=== PATIENT | male | born 1935 | race Caucasian/White ===

== ENCOUNTER 2016-11-15 10:21 | Outpatient (CLI) ==
[2016-11-15 11:01] LABS: HEMATOCRIT 39.5 % (42.0-52.0); HEMOGLOBIN 13.2 g/dl (14.0-18.0); MEAN CORPUSCULAR HEMOGLOBIN 29.1 pg (27.0-31.0); MEAN CORPUSCULAR HGB CONC 33.4 (31.8-35.4); MEAN CORPUSCULAR VOLUME 87.2 fl (80.0-94.0); RED BLOOD COUNT 4.53 10^6/ul (4.70-6.10); WHITE BLOOD COUNT 8.1 K/ul (4.2-10.2)
[2016-11-15 11:05] LABS: BILIRUBIN,URINE Negative (NEGATIVE); KETONES,URINE Negative (NEGATIVE); LEUKOCYTE ESTERASE ,URINE Trace (NEGATIVE); NITRITE,URINE Negative (NEGATIVE); PH,URINE 5.5 (5-9); PROTEIN,URINE Trace (NEGATIVE); URINE, BLOOD Negative (NEGATIVE)
[2016-11-15 11:07] LABS: ADD URINE MICROSCOPIC YES
[2016-11-15 11:08] LABS: BACTERIA,URINE TRACE (NOT PRESENT)
[2016-11-15 11:23] LABS: ALBUMIN 3.8 g/dL (3.4-5.0); ANION GAP 14.6; BUN/CREATININE RATIO 13.71; CALCIUM 9.5 mg/dL (8.2-10.2); CREATININE 1.75 mg/dL (0.60-1.10); POTASSIUM 4.6 mmol/L (3.5-5.1); URIC ACID 7.2 mg/dL (2.6-7.2)
[2016-11-16 06:12] LABS: URINE CREATINE 173.3 mg/dL (Not Estab.)
[2016-11-16 15:25] LABS: A/G RATIO 0.8 (0.7-1.7); ALPHA-1 GLOBULIN 0.3 g/dL (0.0-0.4); GAMMA GLOBULIN 1.4 g/dL (0.4-1.8)
== END 2016-11-15 10:22 | disposition home or self-care (01) ==
LOC: LAB 10:21
PROVIDERS: ATTEND Specialist
DX: N18.3 Chronic kidney disease, stage 3 (moderate) (principal)
CPT/HCPCS: 36415; 80069; 81001; 82570; 83970; 84156; 84165; 84550; 85027